=== PATIENT | female | born 1965 | race Caucasian/White ===

== ENCOUNTER 2017-07-23 15:12 | Outpatient (CLI) | payer OTHER | END 2017-07-23 15:24 | disposition home or self-care (01) | LOC: RAD 15:12 | DX: R05 Cough (principal) ==

== ENCOUNTER 2017-08-07 09:58 | Outpatient (CLI) | payer OTHER | END 2017-08-07 10:12 | disposition home or self-care (01) | LOC: LAB 09:58 | DX: E03.8 Other specified hypothyroidism (principal); D68.8 Other specified coagulation defects ==

== ENCOUNTER 2025-04-17 09:15 | Outpatient (CLI) | payer OTHER | END 2025-04-17 09:19 | disposition home or self-care (01) | LOC: RAD 09:15 | PROVIDERS: ATTEND Specialist | DX: R05.9 Cough, unspecified (principal) ==